=== PATIENT | female | born 1995 | race Caucasian/White ===

== ENCOUNTER 2017-01-06 17:27 | Emergency (ER) | payer OTHER ==
[~2017-01-06] VITALS: Ht 177.8 cm; Wt 72.7 kg
[2017-01-06 17:38] VITALS: BP 136/67
--- NOTE | 2017-01-06 17:47 | ED.ADGEN ---
Past History Past Medical History: No Pertinent History, Asthma Additional Past Medical Histor: 16 weeks Past Surgical History: No Surgical History Smoking: Non-smoker Alcohol Use: None Drug Use: None Adult General Chief Complaint Chief Complaint Wheezing short of breath [facility] HPI Patient is a 21 year old female who presents with wheezing and shortness of breath consistent with her usual flareup of asthma. Patient is out of her albuterol inhaler which is broken. The last 3-4 weeks the patient's had to use her inhaler daily. Denies any fever chills or chest pain no abdominal pain. She is 16 weeks and is receiving care. No dysuria or frequency no back pain. No abdominal cramping. Review of Systems Review of Systems Constitutional: Denies fever or chills [] Eyes: Denies change in visual acuity, redness, or eye pain [] HENT: Denies nasal congestion or sore throat [] Respiratory: Positive cough and shortness of breath [] Cardiovascular: No additional information not addressed in HPI [] GI: Denies abdominal pain, nausea, vomiting, bloody stools or diarrhea [] : Denies dysuria or hematuria [] Musculoskeletal: Denies back pain or joint pain [] Integument: Denies rash or skin lesions [] Neurologic: Denies headache, focal weakness or sensory changes [] Endocrine: Denies polyuria or polydipsia [] Except as noted in history of present illness Current Medications Current Medications Current Medications Medications (Trade) Dose Ordered Sig/Melecio Start Time Stop Time Status Last Admin Dose Admin Albuterol Sulfate (Ventolin) 2.5 mg 1X ONCE 01/06/17 18:00 01/06/17 18:01 01/06/17 17:48 2.5 MG Prednisone (Prednisone) 50 mg 1X ONCE 01/06/17 18:00 01/06/17 18:01 Allergies Allergies Allergies Coded Allergies Type Severity Reaction Last Updated Verified cholecalciferol (vitamin D3) Allergy Intermediate Swelling 03/21/16 Yes sodium fluoride Allergy Intermediate Swelling 03/21/16 Yes Physical Exam Physical Exam Constitutional: Well developed, well nourished, no acute distress, non-toxic appearance. [] HENT: Normocephalic, atraumatic, bilateral external ears normal, oropharynx moist, no oral exudates, nose normal. [] Eyes: PERRLA, EOMI, conjunctiva normal, no discharge. [] Neck: Normal range of motion, no tenderness, supple, no stridor. [] Cardiovascular:Heart rate regular rhythm, no murmur [] Lungs & Thorax: Bilateral breath sounds with occasional wheezes no distress or accessory muscle use [] Abdomen: Bowel sounds normal, soft, no tenderness, no masses, no pulsatile masses. 16 week fundus [] Skin: Warm, dry, no erythema, no rash. [] Back: No tenderness, no CVA tenderness. [] Extremities: No tenderness, no cyanosis, no clubbing, ROM intact, no edema. [] Neurologic: Alert and oriented X 3, normal motor function, normal sensory function, no focal deficits noted. [] Psychologic: Affect normal, judgement normal, mood normal. [] Current Patient Data Vital Signs Vital Signs Date Time Temp Pulse Resp B/P (MAP) Pulse Ox O2 Delivery O2 Flow Rate FiO2 01/06/17 17:48 98 Room Air 01/06/17 17:38 97.7 87 20 EKG EKG [] Radiology/Procedures Radiology/Procedures [] Course & Med Decision Making Course & Med Decision Making Pertinent Labs and Imaging studies reviewed. (See chart for details) LAD of cares to give an albuterol treatment give prednisone by mouth. I have counseled the patient regarding the need for long-acting inhaled steroids given the fact she is having these albuterol daily and I recommend she discuss that with both her PCP and her newsstand vendor who she has an appointment within the next couple days. 1750 8 PM: Exam patient's lungs are clear she's really much more relaxed and comfortably. Patient feels good about going home [] Final Impression Final Impression Asthma exacerbation [] Problems: Dragon Disclaimer Dragon Disclaimer This electronic medical record was generated, in whole or in part, using a voice recognition dictation system. TREY SHAH MD Jan 06, 2017 17:47
[2017-01-06] MEDS ORDERED: PRED50TA PO (17:51)
[2017-01-06] MEDS ORDERED: ALBU6.7H IH (17:51)
[2017-01-06] MEDS ORDERED: ALBUTEROL SULFATE 2.5 MG/3 ML NEBU. NEB ONE (18:00)
[2017-01-06] MEDS ORDERED: predniSONE 10 MG TABLET PO ONE (18:00)
== END 2017-01-06 18:02 | disposition home or self-care (01) ==
LOC: ER 17:27
DX: O99.512 Diseases of the respiratory system complicating pregnancy, second trimester (principal); J45.901 Unspecified asthma with (acute) exacerbation; Z3A.16 16 weeks gestation of pregnancy; Z88.8 Allergy status to other drugs, medicaments and biological substances
CPT/HCPCS: 94640; 99283; J7512; J7613

== ENCOUNTER 2017-11-21 11:43 | Emergency (ER) | payer OTHER ==
[~2017-11-21] VITALS: Ht 180.3 cm; Wt 81.6 kg
[~2017-11-21 11:43] MED LIST: ALBU6.7H IH; PRED50TA PO
[2017-11-21 11:47] VITALS: BP 128/80
--- NOTE | 2017-11-21 12:24 | RAD ---
SHOULDER 2+V RIGHT Clinical Indication: injury, history of prior dislocation Comparison: Shoulder radiographs dated 03/21/2016 Findings: No acute fracture or malalignment. The joint spaces are maintained. Bony mineralization is normal for the patient's age. No significant soft tissue abnormality. No radiopaque foreign body. IMPRESSION: No acute fracture or malalignment.
[2017-11-21] MEDS ORDERED: DICL100G18 TP (12:45)
--- NOTE | 2017-11-21 12:45 | PHYS DOC ---
Past History Past Medical History: Asthma Additional Past Medical Histor: 16 weeks Past Surgical History: No Surgical History Smoking: Non-smoker Alcohol Use: Occasionally Drug Use: None Adult General Chief Complaint Chief Complaint: SHOULDER INJURY HPI HPI Patient is a 22 year old F who presents with right shoulder pain. Roxanne states that just prior to arrival she was playing fetch with her dog when she felt as if her shoulder was going to dislocate. She had moderate pain thereafter with minimal movement. Her pain is improved with positioning and rest. She has a history of frequent shoulder dislocations. She does describe tingling in fingers 2 through 4 excluding her thumb. She has no sensation changes and the rest of her arm. She has no other associated symptoms. She has no exacerbating or relieving factors. Review of Systems Review of Systems Constitutional: Denies fever or chills [] Eyes: Denies change in visual acuity, redness, or eye pain [] HENT: Denies nasal congestion or sore throat [] Respiratory: Denies cough or shortness of breath [] Cardiovascular: No additional information not addressed in HPI [] GI: Denies abdominal pain, nausea, vomiting, bloody stools or diarrhea [] : Denies dysuria or hematuria [] Musculoskeletal: Denies back pain Integument: Denies rash or skin lesions [] Neurologic: Denies headache, or focal weakness Endocrine: Denies polyuria or polydipsia [] All other systems were reviewed and found to be within normal limits, except as documented in this note. Family History Family History No pertinent family medical history was reported Current Medications Current Medications Current medications reviewed Allergies Allergies Allergies Coded Allergies Type Severity Reaction Last Updated Verified cholecalciferol (vitamin D3) Allergy Intermediate Swelling 03/21/16 Yes sodium fluoride Allergy Intermediate Swelling 03/21/16 Yes Physical Exam Physical Exam Constitutional: Well developed, well nourished, no acute distress, non-toxic appearance. [] HENT: Normocephalic, atraumatic, Eyes: EOMI, conjunctiva normal, no discharge. [] Neck: Normal range of motion, no tenderness, supple, no stridor. [] Cardiovascular:Heart rate regular rhythm, no murmur [] Lungs & Thorax: Bilateral breath sounds clear to auscultation [] Extremities: no edema. [] Generalized tenderness to palpation over the right shoulder. Range of motion and strength testing was declined. Hand tingling was exacerbated by percussing over the carpal tunnel on the right hand. Neurologic: Alert and oriented X 3, normal motor function, no focal deficits noted. [] Psychologic: Affect normal, judgement normal, mood normal. [] Current Patient Data Vital Signs Vital Signs Date Time Temp Pulse Resp B/P (MAP) Pulse Ox O2 Delivery O2 Flow Rate FiO2 11/21/17 11:47 97.4 92 16 98 Room Air EKG EKG [] Radiology/Procedures Radiology/Procedures Right shoulder 3 view x-ray Impressions: No acute disease noted Course & Med Decision Making Course & Med Decision Making Pertinent Labs and Imaging studies reviewed. (See chart for details) [] Dragon Disclaimer Dragon Disclaimer This electronic medical record was generated, in whole or in part, using a voice recognition dictation system. Departure Departure: Impression: Primary Impression: Shoulder sprain Additional Impression: Carpal tunnel syndrome Disposition: HOME, SELF-CARE Condition: STABLE Referrals: ALEXX ROMERO [facility] (PCP) Patient Instructions: Shoulder Sprain Additional Instructions: Roxanne was seen in the emergency department shoulder pain. No emergency medical condition was found on history or physical exam. She did have normal imaging of her shoulder. Her symptoms are most consistent with a sprain. She is encouraged to continue normal activity as tolerated. She was given a prescription for Voltaren gel to use as needed. She is also found to have symptoms consistent with carpal tunnel. She is encouraged follow-up with her primary care doctor in the next 3-5 days for further management. Scripts Diclofenac Sodium (VOLTAREN) 100 Gm Gel..gram. 1 GM TP QID, #100 GM 2 Refills Prov: SHANTE SONG MD 11/21/17 Problem Qualifiers Primary Impression: Shoulder sprain Encounter type: initial encounter Shoulder sprain type: unspecified sprain Laterality: right Qualified Codes: S43.401A - Unspecified sprain of right shoulder joint, initial encounter SHANTE SONG MD Nov 21, 2017 12:45
== END 2017-11-21 12:53 | disposition home or self-care (01) ==
LOC: ER 11:43
DX: S43.401A Unspecified sprain of right shoulder joint, initial encounter (principal); G56.01 Carpal tunnel syndrome, right upper limb; J45.909 Unspecified asthma, uncomplicated; Z88.8 Allergy status to other drugs, medicaments and biological substances; X58.XXXA Exposure to other specified factors, initial encounter; Y93.89 Activity, other specified; Y99.8 Other external cause status; Y92.89 Other specified places as the place of occurrence of the external cause
CPT/HCPCS: 73030; 99284

== ENCOUNTER 2018-05-31 18:07 | Emergency (ER) | payer OTHER ==
[~2018-05-31] VITALS: Ht 181.6 cm; Wt 96.2 kg
[~2018-05-31 18:07] MED LIST changes: +DICL100G18 TP
[2018-05-31] MEDS ORDERED: predniSONE 20 MG TABLET PO ONE (18:30)
[2018-05-31] MEDS ORDERED: ALBUTEROL SULFATE 2.5 MG/3 ML NEBU. NEB ONE (18:30)
[2018-05-31] MEDS ORDERED: PRED50TA PO (18:31)
[2018-05-31] MEDS ORDERED: ALBU8.5H8 INH (18:31)
--- NOTE | 2018-05-31 18:35 | PHYS DOC ---
Adult General Chief Complaint Chief Complaint cough HPI HPI 23 years old female ran out of her inhaler here in the emergency department with cough for about a week requesting a refill on. Review of Systems Review of Systems Constitutional: Denies fever or chills [] Eyes: Denies change in visual acuity, redness, or eye pain [] HENT: Denies nasal congestion or sore throat [] Respiratory: Denies shortness of breath [] Cardiovascular: No additional information not addressed in HPI [] GI: Denies abdominal pain, nausea, vomiting, bloody stools or diarrhea [] : Denies dysuria or hematuria [] Musculoskeletal: Denies back pain or joint pain [] Integument: Denies rash or skin lesions [] Neurologic: Denies headache, focal weakness or sensory changes [] Endocrine: Denies polyuria or polydipsia [] All other systems were reviewed and found to be within normal limits, except as documented in this note. Current Medications Current Medications Current Medications Medications (Trade) Dose Ordered Sig/Melecio Start Time Stop Time Status Last Admin Dose Admin Albuterol Sulfate (Ventolin) 2.5 mg 1X ONCE 05/31/18 18:30 05/31/18 18:31 DC Prednisone (Prednisone) 60 mg 1X ONCE 05/31/18 18:30 05/31/18 18:31 DC Allergies Allergies Allergies Coded Allergies Type Severity Reaction Last Updated Verified cholecalciferol (vitamin D3) Allergy Intermediate Swelling 03/21/16 Yes sodium fluoride Allergy Intermediate Swelling 03/21/16 Yes Physical Exam Physical Exam Constitutional: Well developed, well nourished, no acute distress, non-toxic appearance. [] HENT: Normocephalic, atraumatic, bilateral external ears normal, oropharynx moist, no oral exudates, nose normal. [] Eyes: PERRLA, EOMI, conjunctiva normal, no discharge. [] Neck: Normal range of motion, no tenderness, supple, no stridor. [] Cardiovascular:Heart rate regular rhythm, no murmur [] Lungs & Thorax: Diminished wheezing Abdomen: Bowel sounds normal, soft, no tenderness, no masses, no pulsatile masses. [] Skin: Warm, dry, no erythema, no rash. [] Back: No tenderness, no CVA tenderness. [] Extremities: No tenderness, no cyanosis, no clubbing, ROM intact, no edema. [] Neurologic: Alert and oriented X 3, normal motor function, normal sensory function, no focal deficits noted. [] Psychologic: Affect normal, judgement normal, mood normal. [] EKG EKG [] Radiology/Procedures Radiology/Procedures [] Course & Med Decision Making Course & Med Decision Making Pertinent Labs and Imaging studies reviewed. (See chart for details) [] Final Impression Final Impression [] Problems: (1) Asthma Qualifiers: Qualified Codes: J45.21 - Mild intermittent asthma with (acute) exacerbation Dragon Disclaimer Dragon Disclaimer This electronic medical record was generated, in whole or in part, using a voice recognition dictation system. KESHA ARCOS MD May 31, 2018 18:35
[2018-05-31 19:05] VITALS: BP 140/77
== END 2018-05-31 19:07 | disposition home or self-care (01) ==
LOC: ER 18:07
DX: J45.21 Mild intermittent asthma with (acute) exacerbation (principal); Z88.8 Allergy status to other drugs, medicaments and biological substances
CPT/HCPCS: 94640; 99283; J7512; J7613